=== PATIENT | female | born 1990 | race Caucasian/White ===

== ENCOUNTER → 2022-07-21 | Outpatient (CLI) | payer MEDICAID ==
[~2022-07-21] VITALS: Ht 170.2 cm; Wt 145.2 kg
[~2022-07-21] MED LIST: DOCU-143 PO; IBUP-1780 PO; LORA-405 PO; METHYLFOLATE; OXYC-525 PO; OXYC1TAB87 PO; RT-ALBUINH INH
== END ==
LOC: PREOP 05:28
PROVIDERS: ATTEND Obstetrics & Gynecology
DX: Z01.818 Encounter for other preprocedural examination (principal); N92.1 Excessive and frequent menstruation with irregular cycle; N94.6 Dysmenorrhea, unspecified

== ENCOUNTER 2022-07-28 11:14 | Day surgery (SDC) | payer MEDICAID ==
[~2022-07-28] VITALS: Ht 170.2 cm; Wt 145.2 kg
[2022-07-28] VITALS (10 sets, daily range): BP systolic 114–157; BP diastolic 62–95
--- NOTE | 2022-07-28 08:09 | Discharge Inst-Surgical ---
Discharge Inst-Surgical Depart Medication/Instructions New, Converted or Re-Newed RX: Transmitted to Pharmacy Consults/Follow Up Patient Instructions: As directed Orders & Referrals Follow Up Appt: Return to clinic on Saturday July 30, 2022 for staple removal Call to make follow up appt. for patient in 4 weeks. Activity: Rest for 24 hours, than as tolerated. Wound Care: May remove Band-Aid tomorrow. Replace as desired. Keep incisions clean and dry. Wash daily with soap and water. Diet: As tolerated- shower or tub bathe as desired. No driving for 24 hours, no alcoholic beverages for 24 hours, and nothing per vagina (no tampons, douching, or intercourse) for 8 weeks. Patient to return to the clinic as soon as possible for: Temperature greater than 101F, Severe Pain, Foul discharge from incision or vagina, Excessive Bleeding (more than a period). Activity Activity as Tolerated: No Diet Discharge Diet: No Restrictions LEONOR SINCLAIR MD Jul 28, 2022 08:09
[~2022-07-28 11:14] MED LIST changes: -METHYLFOLATE; -RT-ALBUINH INH
[2022-07-28] MEDS ORDERED: LIDOCAINE/EPI 2% 1:200,00 (XYLOCAINE) 20 ML VIAL ONE (12:08)
[2022-07-28 12:13] LABS: BASOPHILS # (AUTO) 0.1 10^3/uL (0.0-0.1); BASOPHILS % (AUTO) 1 % (0-10); EOSINOPHILS # (AUTO) 0.1 10^3/uL (0.0-0.3); EOSINOPHILS % (AUTO) 2 % (0-10); HEMATOCRIT 39 % (35-52); HEMOGLOBIN 13.2 g/dL (11.5-16.0); LYMPHOCYTES # (AUTO) 1.6 10^3/uL (1.0-4.0); LYMPHOCYTES % (AUTO) 21 % (12-44); MEAN CORPUSCULAR HEMOGLOBIN 29 pg (25-34); MEAN CORPUSCULAR HGB CONC 34 g/dL (32-36); MEAN CORPUSCULAR VOLUME 86 fL (80-99); MEAN PLATELET VOLUME 10.2 fL (9.0-12.2); MONOCYTES # (AUTO) 0.4 10^3/uL (0.0-1.0); MONOCYTES % (AUTO) 5 % (0-12); NEUTROPHILS # (AUTO) 5.7 10^3/uL (1.8-7.8); NEUTROPHILS % (AUTO) 72 % (42-75); PLATELET COUNT 280 10^3/uL (130-400); WHITE BLOOD COUNT 7.9 10^3/uL (4.3-11.0)
[2022-07-28] MEDS ORDERED: MIDAZOLAM 2 MG/2 ML (VERSED) VIAL IV ONE (12:15)
[2022-07-28] MEDS ORDERED: LACTATED RINGERS 1,000 ML IV PRN (12:15)
[2022-07-28] MEDS: LACTATED RINGERS 1,000 ML IV PRN ×2 (12:17→13:41)
[2022-07-28] MEDS ORDERED: fentaNYL INJ 100 MCG/2 ML AMP ONE (12:24)
[2022-07-28] MEDS ORDERED: MIDAZOLAM 2 MG/2 ML (VERSED) VIAL ONE (12:24)
[2022-07-28] MEDS ORDERED: METHYLFOLATE (12:41)
[2022-07-28] MEDS ORDERED: RT-ALBUINH INH (12:41)
--- NOTE | 2022-07-28 13:04 | Progress Note-Pre Operative ---
Pre-Operative Progress Note Date of Available H&P: Jul 28, 2022 Date H&P Reviewed: Jul 28, 2022 Time H&P Reviewed: 13:04 History & Physical: H&P Reviewed, No changes noted Pre-Operative Diagnosis: Menometrorrhagia LEONOR SINCLAIR MD Jul 28, 2022 13:04
--- NOTE | 2022-07-28 13:05 | Progress Note-Post Operative ---
Post-Operative Progess Note Surgeon (s)/Metal Furniture Polisher (s) Surgeon LEONOR SINCLAIR MD Metal Furniture Polisher: Ema Pre-Operative Diagnosis Menometrorrhagia Post-Operative Diagnosis Same with pathology Pending Procedure & Operative Findings Date of Procedure 07/28/22 Procedure Performed/Findings Total laparoscopic hysterectomy with bilateral Partial salpingectomy And extensive adhesiolysis and cystoscopy Anesthesia Type General anesthesia Estimated Blood Loss Estimated blood loss (mL): Minimal Specimens/Packing Specimens Removed Uterus and Proximal portion of fallopian tubes LEONOR SINCLAIR MD Jul 28, 2022 13:05
[2022-07-28] MEDS ORDERED: SEVOFLURANE (ULTANE) 15 ML INHAL SOLN ONE ×2 (13:32→15:46)
[2022-07-28] MEDS ORDERED: ROCURONIUM 50 MG/5 ML (ZEMURON) VIAL IV ONE ×2 (13:32→14:33)
[2022-07-28] MEDS ORDERED: ONDANSETRON 4 MG/2 ML (SDV) Z0FRAN ONE (13:32)
[2022-07-28] MEDS ORDERED: proPOfol 200 MG/20 ML (DIPRIVAN) VIAL IV ONE (13:32)
[2022-07-28] MEDS ORDERED: HYDROmorphone 2 MG/ML VIAL (DILAUDID) ONE ×2 (13:40→16:23)
[2022-07-28] MEDS ORDERED: METHYLENE BLUE 0.5% (PROVAYBLUE) 50 mg/10 ml vial IV ONE (15:05)
[2022-07-28] MEDS ORDERED: FUROSEMIDE 40 MG/4 ML INJ (LASIX) ONE (15:06)
[2022-07-28] MEDS ORDERED: NEOSTIGMINE (BLOXIVERZ ) 1 MG/1ML 10 ML VIAL ONE (15:17)
[2022-07-28] MEDS ORDERED: GLYCOPYRROLATE 0.2 MG/ML (ROBINUL) 2 ML VIAL ONE (15:17)
[2022-07-28] MEDS ORDERED: fentaNYL INJ 100 MCG/2 ML AMP IVP PRN (15:45)
[2022-07-28] MEDS ORDERED: ONDANSETRON 4 MG/2 ML (SDV) Z0FRAN IVP PRN ×2 (15:45→16:15)
[2022-07-28] MEDS: KETOROLAC 30 MG/ML VIAL IV SCH ×2 (16:06→22:06)
[2022-07-28] MEDS ORDERED: morphine INJ 10 MG/ML 1ML (SYR OR VIAL) IVP ONE (16:15)
[2022-07-28] MEDS ORDERED: HYDROmorphone 2 MG/ML VIAL (DILAUDID) IV ONE (16:15)
[2022-07-28] MEDS: D5 LR IV SOLUTION 1,000 ML IV SCH (17:29)
[2022-07-28] MEDS: oxyCODONE/APAP 5/325MG (PERCOCET 5) TABLET PO PRN ×2 (17:40→20:57)
[2022-07-28] MEDS ORDERED: LORazepam 1 MG (ATIVAN) TAB PO ONE (22:15)
[2022-07-29 00:35] VITALS: BP 160/78
[2022-07-29] MEDS: oxyCODONE/APAP 5/325MG (PERCOCET 5) TABLET PO PRN ×2 (00:35→04:22)
[2022-07-29 01:05] VITALS: BP 140/71
[2022-07-29] MEDS: D5 LR IV SOLUTION 1,000 ML IV SCH (01:20)
[2022-07-29] MEDS: KETOROLAC 30 MG/ML VIAL IV SCH (04:23)
[2022-07-29 06:15] VITALS: BP 145/70
[2022-07-29 07:40] VITALS: BP 146/79
--- NOTE | 2022-07-29 08:20 | Anesthesia-General Post-Op ---
General Patient Condition Mental Status/LOC: Same as Preop Cardiovascular: Satisfactory Nausea/Vomiting: Absent Respiratory: Satisfactory Pain: Controlled Complications: Absent Post Op Complications Complications None Follow Up Care/Instructions Patient Instructions None needed. Anesthesia/Patient Condition Patient Condition Patient is doing well, no complaints, stable vital signs, no apparent adverse anesthesia problems. No complications reported per nursing. D/C home per [facility] [place] Criteria: Yes ASIM PAYNE CRNA Jul 29, 2022 08:20
--- NOTE | 2022-07-29 08:27 | OPERATIVE REPORT ---
DATE OF SERVICE: 07/28/2022 PREOPERATIVE DIAGNOSES: Menometrorrhagia and chronic pelvic pain. POSTOPERATIVE DIAGNOSES: Menometrorrhagia and chronic pelvic pain with pathology pending and also with extensive abdominal and pelvic adhesions. OPERATIVE PROCEDURE: Total laparoscopic hysterectomy with bilateral partial salpingectomy as well as extensive adhesiolysis and cystoscopy. OPERATIVE DESCRIPTION: With the patient in the supine position under satisfactory general anesthesia, she was repositioned in dorsal lithotomy position in the [facility] and prepped and draped in the usual fashion for abdominal and vaginal surgery using robotic assistance. Weighted speculum placed in the posterior fornix of vagina, cervix exposed and grasped anteriorly with single tooth tenaculum. Uterus was sounded to 14 cm with uterine sound. The cervix was then serially dilated with Lawrence dilators and then a Melonie II manipulator was placed using a 6 mm x 10 cm uterine probe and a 25 mm colpotomy ring. The patient was brought in low dorsal lithotomy position after Garcia catheter was placed in the urinary bladder. The abdomen was exposed. A 12 mm incision was made about 14 cm above the umbilicus and a 5 mm incision in the left upper quadrant. Veress needle was placed through the right upper quadrant incision. Correct placement confirmed with a water drop test and the abdomen was insufflated with 2.4 liters of carbon dioxide. The Veress needle was removed and a 5 mm Optiview laparoscopic port placed in the left upper quadrant. This allowed direct visualization of the abdominal wall. Only a small portion of the upper abdominal wall was visible due to extensive adhesions of the omentum to the anterior abdominal wall, basically from the umbilicus to the pelvis. A port was placed in the left lateral quadrant about 8 to 10 cm lateral to the umbilicus and probably 8 cm superior to the umbilicus that 8 mm port was used for a cautery hook to lyse the extensive adhesions very carefully and meticulously. With the adhesions freed, the pelvis was visible. The adhesiolysis required 30 to 40 minutes of dissection due to the extensive nature of the omental adhesions. With that done, the patient was placed in Trendelenburg allowing the bowel and the omentum to spill mostly up out of the pelvis. It was obvious that the uterus was quite extensively adherent to the abdominal wall and into the pelvis. An 8 mm port was placed in the right side opposite the left lateral port that had been placed and a 12 mm port placed through the incision in the upper abdomen. The da Sumeet column was advanced on the patient and docked, and I retired to the da Sumeet console. At the console using the vessel sealer on the right and a bipolar fenestrated grasper on the left, the pelvis was first examined. The ovaries were somewhat involved in adhesions. The patient had had a tubal sterilization with a small portion of fallopian tube remaining attached to the ovary and then a second portion of fallopian tube attached to the uterus. Decision was made to remove the uterus with the proximal portions of fallopian tubes and avoid any dissection for the rest of the pelvis. The appendix was not readily visible, and it was not identified or inspected. Using the monopolar agata, the adhesions of the uterus to the anterior abdominal wall were very carefully and meticulously dissected and again this probably require 20 minutes or so to get the uterus freed. There was no peritoneal space anterior to the uterus due to the extensive nature of adhesions. Dissection was carried between the uterus and the abdominal wall until the bladder could be clearly identified and dissected down off the lower uterine segment, allowing for eventual vaginotomy incision. With that portion done, then using the vessel sealer, the adnexal tissue round ligaments, uteroovarian pedicle and cardinal ligaments were clamped, cauterized and divided with the vessel sealer. Broad ligament was treated in the same manner. Using now a monopolar shear, the vaginotomy incision was started posteriorly and dissected circumferentially until the entire colpotomy ring could be exposed and then I scrubbed back in to remove the uterus through the vagina. The uterus was relatively large compared to the vaginal canal. This required some manipulation in order to extract the uterus with the proximal portion of fallopian tubes still attached. With that done, I returned to the da Sumeet console. At the console using a single V-Loc barbed suture, the vaginal cuff was closed in its entirety in the usual manner, taking care to include the uterine vessel pedicles bilaterally. Hemostasis was complete. Both ureters were not readily visible. Decision was made to go ahead with cystoscopy after completion of the laparoscopy. With the uterus removed, hemostasis complete, no remaining abnormal pathology, the operative instruments were removed under direct vision as were the ports. The abdomen was evacuated insufflating gas in the process of removing the ports. The skin incisions were stapled. The fascia at the supraumbilical incision was closed with a [id number] suture of 2-0 Vicryl. The patient was brought out of Trendelenburg using a cystoscope and saline as a distending medium, the bladder was examined. The bladder was intact and free efflux of urine was noted from both ureteral orifices. At this point, the procedure was terminated. The Garcia catheter was replaced to dependent drainage. Sponge and needle counts were correct. Blood loss was minimal. The patient had tolerated the procedure well and was uneventfully awakened from her general anesthesia and transferred to recovery room. Sponge and needle counts again were correct at the end of procedure. Job ID: [id number] DocumentID: [id number] Dictated Date: 07/29/2022 07:53:05 Aluminum Siding Mechanic Date: 07/29/2022 08:26:51 Dictated By: LEONOR SINCLAIR MD
[2022-07-29] MEDS ORDERED: DOCUSATE SODIUM 100 MG (COLACE) CAP PO SCH (09:00)
[2022-07-29] MEDS ORDERED: IBUPROFEN 800 MG (MOTRIN) TAB PO SCH (15:45)
== END 2022-07-29 08:30 | disposition home or self-care (01) ==
LOC: SDC 11:14 → WS 17:12 → SDC 07-29 08:30
PROVIDERS: ATTEND Obstetrics & Gynecology
DX: N73.6 Female pelvic peritoneal adhesions (postinfective) (principal); N92.1 Excessive and frequent menstruation with irregular cycle; G89.29 Other chronic pain; E66.01 Morbid (severe) obesity due to excess calories; Z68.43 Body mass index [BMI] 50.0-59.9, adult; F17.210 Nicotine dependence, cigarettes, uncomplicated; N94.5 Secondary dysmenorrhea; N85.00 Endometrial hyperplasia, unspecified
CPT/HCPCS: 36415; 84703; 85025; 87081; 94664